=== PATIENT | male | born 1995 | race Caucasian/White ===

== ENCOUNTER 2020-09-20 11:07 | Emergency (ER) | payer SELFPAY ==
[2020-09-20 12:43] LABS: HIV (1/2) Antibody/Antigen Non-Reactive (NonReactive); HIV 1/2 INDEX 0.13 S/CO (<1.00); Hep C IgG Ab Non-Reactive (NonReactive); Hep C Index 0.08 S/CO (0-0.79)
[2020-09-20 12:45] LABS: HBSAB Concentration 199.79 mIU/mL; Hep B Surf AB Reactive (NonReactive)
== END 2020-09-20 12:40 | disposition home or self-care (01) ==
LOC: ERS 11:07
DX: S61.231A Puncture wound without foreign body of left index finger without damage to nail, initial encounter (principal); W46.0XXA Contact with hypodermic needle, initial encounter
CPT/HCPCS: 36415; 86706; 86803; 87389; 99283